=== PATIENT | female | born 1930 | race Caucasian/White ===

== ENCOUNTER 2016-09-11 08:53 | Observation (INO) | payer MEDICARE, OTHER ==
[~2016-09-11] VITALS: Ht 154.9 cm; Wt 59.5 kg
[~2016-09-11 08:53] MED LIST: ACET-818 PO; ASPI-535 PO; CARV12.540 PO; FERR-49 PO; HYDR200T5 PO; OMEP20CA16 PO; VIC PO; [UNRECOGNIZED DRUG - CODE] NASAL
[2016-09-11] MEDS ORDERED: NALOXONE (0.4 MG/ML) INJ IV ONE ×3 (09:30→10:30)
[2016-09-11] MEDS ORDERED: METHYLPREDNISOLONE 125 MG INJ IV STA (10:13)
[2016-09-11] MEDS ORDERED: ALBUTEROL 0.5% (NEB) 2.5 MG/0.5 ML AMP INH STA (10:13)
[2016-09-11] MEDS ORDERED: DULO20CA17 PO (10:19)
[2016-09-11] MEDS ORDERED: IPRA3AMP INHALATION (10:19)
[2016-09-11] MEDS ORDERED: WHEA1POW8 PO (10:19)
[2016-09-11] MEDS ORDERED: DULO30CA47 PO (10:19)
[2016-09-11] MEDS ORDERED: BECL8.7A5 INH (10:19)
[2016-09-11] MEDS ORDERED: CLOP75TA4 PO (10:19)
[2016-09-11] MEDS ORDERED: AMLO5TAB4 PO (10:22)
[2016-09-11] MEDS ORDERED: HYDR-906 PO (10:22)
[2016-09-11] MEDS ORDERED: GABA300C16 PO (10:22)
[2016-09-11] MEDS ORDERED: ACET325T45 PO (10:22)
[2016-09-11 11:00] VITALS: TEMP 98.3
[2016-09-11 11:31] LABS: ADD SCAN DIFF NO
[2016-09-11 11:34] LABS: BASOPHIL # 0.1 10^3/ul (0.0-0.1); BASOPHILS % 0.5 % (0.0-2.0); EOSINOPHILS # 0.3 10^3/ul (0.0-0.5); EOSINOPHILS % 3.4 % (0.0-7.0); HEMATOCRIT 37.2 % (37.0-47.0); HEMOGLOBIN 11.7 g/dl (12.0-16.0); LYMPHOCYTES # 1.5 10^3/ul (0.8-2.9); LYMPHOCYTES % 16.2 % (15.0-51.0); MEAN CORPUSCULAR HEMOGLOBIN 29.5 pg (29.0-33.0); MEAN CORPUSCULAR HGB CONC 31.5 g/dl (32.0-37.0); MEAN CORPUSCULAR VOLUME 93.9 fl (82.0-101.0); MEAN PLATELET VOLUME 9.8 fl (7.4-10.4); MONOCYTE # 0.8 10^3/ul (0.3-0.9); MONOCYTES % 8.8 % (0.0-11.0); NEUTROPHIL # 6.7 10^3/ul (1.6-7.5); NEUTROPHILS % 70.9 % (39.0-77.0); PLATELET COUNT 266 10^3/UL (140-415); RED BLOOD COUNT 3.96 10^6/ul (4.20-5.40); RED CELL DISTRIBUTION WIDTH 13.3 % (11.5-14.5); WHITE BLOOD COUNT 9.5 10^3/ul (4.8-10.8)
--- NOTE | 2016-09-11 11:38 | RADRPT ---
PROCEDURE: XR Chest 1 view. CLINICAL INDICATION: Shortness of breath. TECHNIQUE: AP views of the chest were obtained. COMPARISON: March 18, 2013 FINDINGS: The heart is large. Calcified atherosclerosis is noted in the aorta. Left-sided dual chamber, biven tricular pacemaker/defibrillator has its leads over the heart and appears stable. Central pulmonary vascular congestion and interstitial prominence is seen in both lungs. Lungs are hypoinflated. Sc attered atelectasis is noted in both lungs. No consolidations are identified. No pneumothorax is se en. The osseous structures are osteopenic. Degenerative changes are seen in the shoulders. IMPRESSION: Cardiomegaly with calcified atherosclerosis in the aorta. Central pulmonary vascular congestion and interstitial prominence in both lungs. Scattered atelectasis in both lungs. Hypoinflated lungs. RPTAT: AA .Matias Puga MD, Date Time Electronically viewed and signed by .Matias Puga MD, on 09/11/2016 11:37 .P/
--- NOTE | 2016-09-11 12:08 | RADRPT ---
PROCEDURE: CT Brain without contrast. CLINICAL INDICATION: Altered mental status. TECHNIQUE: A CT of the brain was performed on a multidetector CT scanner utilizing axial sections from the skull base through the vertex without contrast. Images were reviewed on a high-resolution [employer] workstation. Exam CTDI = 44.9 x 2 and 45.01 x2 mGy and the DLP = 720.23 mGy-cm. One or more of the following dose reduction techniques were used: Automated exposure control Adjustment of the mA and/or kV according to patient size. Use of iterative reconstruction technique. COMPARISON: CT head 03/13/2013 FINDINGS: Moderate diffuse cerebral and cerebellar atrophy is present. There is proportionate dilatation of t he ventricular system and sulci in a symmetric fashion. There is prominence of the extraaxial spaces secondary to atrophy. There is no evidence of intracranial hemorrhage, mass effect or midline shift . No abnormal intra-axial or extra-axial fluid collections are seen. The density of the brain is n ormal and the simon/white matter differentiation is well preserved. Severe confluent diffuse deep wh ite matter microangiopathic ischemic change is seen. The osseous structures are unremarkable. Pa ranasal sinuses are clear. Vascular calcifications are identified. There is partially imaged severe degenerative changes at the atlantoaxial joint. There is superior displacement of the odontoid proc ess in keeping with basilar invagination. There is mild narrowing at the craniocervical junction. IMPRESSION: 1. No intracranial hemorrhage, mass effect or midline shift. 2. moderate generalized atrophy. Severe confluent microangiopathic ischemic change. 3. Intracranial atherosclerosis. 4. Partially imaged severe degenerative changes at atlantoaxial joint with mild narrowing at the furniture crater niocervical . RPTAT: BB .Iron Mcclain MD, MD Date Time Electronically viewed and signed by .Iron Mcclain MD, on 09/11/2016 12:07 .O/
[2016-09-11 13:32] LABS: ALANINE AMINOTRANSFERASE 31 IU/L (13-69); ALBUMIN 4.2 g/dl (3.3-4.9); ALBUMIN/GLOBULIN RATIO 1.23; ALKALINE PHOSPHATASE 76 IU/L (42-121); ANION GAP 13 (8-16); ASPARTATE AMINO TRANSFERASE 24 IU/L (15-46); BILIRUBIN,INDIRECT 0.1 mg/dl (0-1.1); BILIRUBIN,TOTAL 0.1 mg/dl (0.2-1.3); BLOOD UREA NITROGEN 24 mg/dl (7-20); CALCIUM 8.9 mg/dl (8.4-10.2); CARBON DIOXIDE 27 mmol/L (21-31); CHLORIDE 109 mmol/L (97-110); CREATININE 0.69 mg/dl (0.44-1.00); GLUCOSE 122 mg/dl (70-220); POTASSIUM 4.4 mmol/L (3.5-5.1); SODIUM 145 mmol/L (135-144); TOTAL PROTEIN 7.6 g/dl (6.1-8.1)
[2016-09-11 13:36] LABS: ADD UMIC YES; UR BILIRUBIN (Dip) NEGATIVE (NEGATIVE); UR BLOOD (Dip) NEGATIVE (NEGATIVE); UR CLARITY CLEAR (CLEAR); UR COLOR LT. YELLOW (YELLOW); UR GLUCOSE (Dip) NEGATIVE (NEGATIVE); UR KETONES (Dip) NEGATIVE (NEGATIVE); UR LEUKOCYTE ESTERASE (Dip) 1+ (NEGATIVE); UR NITRITE (Dip) NEGATIVE (NEGATIVE); UR TOTAL PROTEIN (Dip) TRACE (NEGATIVE); UR UROBILINOGEN (Dip) 0.2 E.U./dL (0.1-1.0)
[2016-09-11 13:45] LABS: TROPONIN-I < 0.012 ng/ml (0.00-0.12)
[2016-09-11 13:49] LABS: UR BACTERIA MANY; URINE RBCS NONE SEEN /HPF (0)
[2016-09-11] MEDS ORDERED: SOD CHLORIDE 0.9% 1,000 ML IV SCH (14:02)
--- NOTE | 2016-09-11 14:10 | ERA ---
ER Documentation Chief Complaint Date/Time DATE: 09/11/16 TIME: 14:04 Chief Complaint Generalized weakness x this AM HPI This is an 86-year-old female with a history of hypertension, dementia with a pacemaker defibrillator in was brought in for altered mental status. The patient has been given Tylenol with codeine 3-4 times a day and they are giving her hydrocodone at night for sleep because of chronic pain issues there are only spacing out or hours between Tylenol codeine and hydrocodone doses. The patient was found to be confused this morning excessively sleepy. The patient has a chronic cough according to the family seems to be worse over the past few days but no fever. The patient has a home health care nurse every day. Patient 's baseline is demented but can have conversations and is amatory. Today she is very weak and will not walk. ROS All systems reviewed and are negative except as per history of present illness. Medications Home Meds Reported Medications Hydrocodone/Acetaminophen ([place] 5-325 Tablet) 1 Each Tablet, 0.5 TAB PO Q6H Y for PAIN LEVEL 6-10, TAB 09/11/16 Gabapentin* (Gabapentin*) 300 Mg Capsule, 300 MG PO HS, #60 CAP 09/11/16 Amlodipine Besylate* (Norvasc*) 5 Mg Tablet, 5 MG PO DAILY, TAB 09/11/16 Acetaminophen* (Acetaminophen*) 325 Mg Tablet, 325 MG PO Q4H Y for PAIN AND OR ELEVATED TEMP, #30 TAB 09/11/16 Beclomethasone Dip* (Qvar 80*) 7.3 Gm Inha, 2 PUFF INH BID, #1 INHALER 09/11/16 Wheat Dextrin (Benefiber) 1 Each Powd.pack, 1 PACKET PO DAILY 09/11/16 Ipratropium-Albuterol (Ipratropium-Albuterol) 0.5-3 Mg/3 Ml Ampul.neb, 3 ML INHALATION Q6, #30 VIAL 09/11/16 Clopidogrel Bisulfate* (Clopidogrel Bisulfate*) 75 Mg Tablet, 75 MG PO DAILY, # 30 TAB 09/11/16 Duloxetine Hcl* (Duloxetine Hcl*) 30 Mg Capsule.dr, 30 MG PO DAILY, #30 CAP 09/11/16 Duloxetine Hcl* (Duloxetine Hcl*) 20 Mg Capsule.dr, 20 MG PO DAILY, #30 CAP 09/11/16 Triamcinolone Acetonide (Nasacort Aq) 16.5 Gm [place], 1 SPR NASAL HS 07/21/09 Acetaminophen-Codeine* (Tylenol No.3*) 1 Tab Tab, 1 TAB PO Q6 Y 07/21/09 Omeprazole* (Omeprazole*) 20 Mg Capsule.dr, 20 MG PO DAILY 07/21/09 Ferrous Sulfate* (Feosol*) 1 Tab Tablet, 1 TAB PO DAILY 07/21/09 Aspirin Ec (Aspir 81) 81 Mg Tablet.dr, 1 TAB PO DAILY 07/21/09 Carvedilol* (Coreg*) 12.5 Mg Tablet, 12.5 MG PO BID 07/21/09 Hydroxychloroquine Sulfate* (Plaquenil*) 200 Mg Tab, 200 MG PO DAILY 07/21/09 Discontinued Reported Medications Acetaminophen/Hydrocodone (Vicodin) 1 Tab Tab, 1 TAB PO Q6 Y 07/21/09 Allergies Allergies: Coded Allergies: Infliximab (Verified Allergy, Mild, 03/14/13) causes CHF adalimumab (Verified Allergy, 03/14/13) causes chf Uncoded Allergies: arava (Allergy, 03/14/13) chf PMhx/Soc History of Surgery: Yes (B TKR REMOTE) Hx Neurological Disorder: No Hx Respiratory Disorders: Yes (lung scarring, chronic cough) Hx Cardiac Disorders: Yes (pacer, CHF, leaky valve, hypertension) Hx Psychiatric Problems: Yes (depression) Hx Miscellaneous Medical Probl: Yes (HTN, RA, ANIMIA, H/O MULTIPLE FALLS. CHF) Hx Alcohol Use: No Hx Substance Use: No Hx Tobacco Use: No FmHx Family History: No coronary disease Physical Exam Vitals Vital Signs Date Time Temp Pulse Resp B/P Pulse Ox O2 Delivery O2 Flow Rate FiO2 09/11/16 11:11 Nasal Cannula 2 09/11/16 11:00 98.3 64 20 127/75 100 Nasal Cannula 2.0 09/11/16 10:26 80 20 100 Nasal Cannula 2.0 09/11/16 10:00 98.3 48 20 147/73 94 Nasal Cannula 2.0 09/11/16 09:03 97.9 66 20 147/65 94 09/11/16 09:00 98.3 55 20 147/68 92 Nasal Cannula 2.0 Physical Exam Const: Well-developed, well-nourished Head: Atraumatic, normocephalic Eyes: Normal Conjunctiva, bilateral small pupils not quite pinpoint PERRLA, EOMI, normal sclera, no nystagmus ENT: Normal External Ears, Nose and Mouth, moist mucus membranes. Neck: Full range of motion. No meningismus, no lymphadenopathy. Resp: Clear to auscultation bilaterally, no wheezing, rhonchi, rales Cardio: Regular rate and rhythm, no murmurs, S1 S2 present Abd: Soft, non tender x 4, non distended. Normal bowel sounds, no guarding or rebound, no pulsitile abdominal masses or bruits Skin: No petechiae or rashes, no ecchymosis , no maculopapular rash Back: No midline or flank tenderness Ext: No cyanosis, or edema, FROM x 4, normal inspection, neurovascularly intact x 4 Neur: Groggy with mumbling speech , STR 4/5 x 4, sensation intact x 4, no focal findings Psych: Unable to obtain Result Diagram: 09/11/16 1117 09/11/16 1250 Results 24 hrs Laboratory Tests Test 09/11/16 11:17 09/11/16 12:50 09/11/16 12:57 White Blood Count 9.510^3/ul Red Blood Count 3.9610^6/ul Hemoglobin 11.7g/dl Hematocrit 37.2% Mean Corpuscular Volume 93.9fl Mean Corpuscular Hemoglobin 29.5pg Mean Corpuscular Hemoglobin Concent 31.5g/dl Red Cell Distribution Width 13.3% Platelet Count 78092^3/UL Mean Platelet Volume 9.8fl Neutrophils % 70.9% Lymphocytes % 16.2% Monocytes % 8.8% Eosinophils % 3.4% Basophils % 0.5% Nucleated Red Blood Cells % 0.0/100WBC Neutrophils # 6.710^3/ul Lymphocytes # 1.510^3/ul Monocytes # 0.810^3/ul Eosinophils # 0.310^3/ul Basophils # 0.110^3/ul Nucleated Red Blood Cells # 0.010^3/ul Sodium Level 145mmol/L Potassium Level 4.4mmol/L Chloride Level 109mmol/L Carbon Dioxide Level 27mmol/L Anion Gap 13 Blood Urea Nitrogen 24mg/dl Creatinine 0.69mg/dl Glucose Level 122mg/dl Calcium Level 8.9mg/dl Total Bilirubin 0.1mg/dl Direct Bilirubin 0.00mg/dl Indirect Bilirubin 0.1mg/dl Aspartate Amino Transf (AST/SGOT) 24IU/L Alanine Aminotransferase (ALT/SGPT) 31IU/L Alkaline Phosphatase 76IU/L Troponin I < 0.012ng/ml B-Type Natriuretic Peptide 122PG/ML Total Protein 7.6g/dl Albumin 4.2g/dl Globulin 3.40g/dl Albumin/Globulin Ratio 1.23 Urine Color LT. YELLOW Urine Clarity CLEAR Urine pH 5.5 Urine Specific [place] 1.025 Urine Ketones NEGATIVE Urine Nitrite NEGATIVE Urine Bilirubin NEGATIVE Urine Urobilinogen 0.2 E.U./dL Urine Leukocyte Esterase 1+ Urine Microscopic RBC NONE SEEN/HPF Urine Microscopic WBC 5-10/HPF Urine Bacteria MANY Urine Hemoglobin NEGATIVE Urine Glucose NEGATIVE% Urine Total Protein TRACE Current Medications Medications (Trade) Dose Ordered Sig/Amy Route PRN Reason Start Time Stop Time Status Last Admin Dose Admin Naloxone HCl (Narcan) 0.4 mg ONCE ONCE IV 09/11/16 09:30 09/11/16 09:31 DC 09/11/16 09:20 Naloxone HCl (Narcan) 0.2 mg ONCE ONCE IV 09/11/16 10:00 09/11/16 10:01 DC 09/11/16 10:03 Albuterol (Proventil 0.5% (Neb)) 10 mg ONCE STAT INH 09/11/16 10:13 09/11/16 10:15 DC 09/11/16 10:22 Methylprednisolone Sodium Succinate (Solu-Medrol) 125 mg ONCE STAT IV 09/11/16 10:13 09/11/16 10:15 DC 09/11/16 10:54 Naloxone HCl (Narcan) 0.2 mg ONCE ONCE IV 09/11/16 10:30 09/11/16 10:31 DC 09/11/16 10:54 Procedures/MDM Patient was given 0.4 mg of Narcan with a marked improvement in her mental status. She is having 0.2 mg of Narcan 2 to follow with some proven as well. After the Narcan was given the patient was coughing quite a bit. She is given breathing treatments to follow-up this which does seem to help quite a bit per Family states that the patient still kind of mumbling and not quite herself mentally although clinically she is better after getting been given Narcan. At this point obtain workup PROCEDURE: CT Brain without contrast. CLINICAL INDICATION: Altered mental status. TECHNIQUE: A CT of the brain was performed on a multidetector CT scanner utilizing axial sections from the skull base through the vertex without contrast. Images were reviewed on a high-resolution [employer] workstation. Exam CTDI = 44.9 x 2 and 45.01 x2 mGy and the DLP = 720.23 mGy-cm. One or more of the following dose reduction techniques were used: Automated exposure control Adjustment of the mA and/or kV according to patient size. Use of iterative reconstruction technique. COMPARISON: CT head 03/13/2013 FINDINGS: Moderate diffuse cerebral and cerebellar atrophy is present. There is proportionate dilatation of the ventricular system and sulci in a symmetric fashion. There is prominence of the extraaxial spaces secondary to atrophy. There is no evidence of intracranial hemorrhage, mass effect or midline shift. No abnormal intra-axial or extra-axial fluid collections are seen. The density of the brain is normal and the simon/white matter differentiation is well preserved. Severe confluent diffuse deep white matter microangiopathic ischemic change is seen. The osseous structures are unremarkable. Paranasal sinuses are clear. Vascular calcifications are identified. There is partially imaged severe degenerative changes at the atlantoaxial joint. There is superior displacement of the odontoid process in keeping with basilar invagination. There is mild narrowing at the craniocervical junction. IMPRESSION: 1. No intracranial hemorrhage, mass effect or midline shift. 2. moderate generalized atrophy. Severe confluent microangiopathic ischemic change. 3. Intracranial atherosclerosis. 4. Partially imaged severe degenerative changes at atlantoaxial joint with mild narrowing at the craniocervical . RPTAT: BB .Iron Mcclain MD, MD Date Time Electronically viewed and signed by .Iron Mcclain MD, on 09/11/2016 12:07 .O/ CC: KELLIE ACHARYA DO PROCEDURE: XR Chest 1 view. CLINICAL INDICATION: Shortness of breath. TECHNIQUE: AP views of the chest were obtained. COMPARISON: March 18, 2013 FINDINGS: The heart is large. Calcified atherosclerosis is noted in the aorta. Left- sided dual chamber, biventricular pacemaker/defibrillator has its leads over the heart and appears stable. Central pulmonary vascular congestion and interstitial prominence is seen in both lungs. Lungs are hypoinflated. Scattered atelectasis is noted in both lungs. No consolidations are identified. No pneumothorax is seen. The osseous structures are osteopenic. Degenerative changes are seen in the shoulders. IMPRESSION: Cardiomegaly with calcified atherosclerosis in the aorta. Central pulmonary vascular congestion and interstitial prominence in both lungs. Scattered atelectasis in both lungs. Hypoinflated lungs. RPTAT: AA .Matias Puga MD, MD Date Time Electronically viewed and signed by .Matias Puga MD, MD on 09/11/2016 11:37 .P/ CC: KELLIE ACHARYA DO Rhythm strip shows a ventricular paced rhythm, normal rate We will admit to the hospital for observation. Still for this patient's symptoms are due to narcotic overdose on accident. But we will watch her clinically. Spoke with her doctor who saw her in the ER Dr. Wilson We will admit for observation telemetry Departure Diagnosis: Primary Impression: Confusion Additional Impression: Narcotic overdose Qualified Code: T40.601A - Narcotic overdose, accidental or unintentional, initial encounter Condition: Stable KELLIE ACHARYA DO Sep 11, 2016 14:10
[2016-09-11] MEDS ORDERED: ONDANSETRON 4 MG INJ IV PRN (14:30)
[2016-09-11] MEDS ORDERED: ACETAMINOPHEN 325 MG TAB PO PRN ×2 (14:30→16:00)
[2016-09-11] MEDS ORDERED: DEXTROSE 5% 1,000 ML IV SCH (16:00)
[2016-09-11 16:13] VITALS: BP 167/77; RESP 17
[2016-09-11 16:19] VITALS: Ht 154.9 cm; Wt 59.5 kg
[2016-09-11 16:24] VITALS: PULSE 86
--- NOTE | 2016-09-11 16:47 | HP ---
DATE OF ADMISSION: 09/11/2016 CHIEF COMPLAINT: Altered mental status. HISTORY OF PRESENT ILLNESS: This is an 86-year-old female with a past medical history of rheumatoid arthritis since age 13, history of hypertension, history of arrhythmia, status post pacemaker, hist ory of chronic pain syndrome, history of CHF, history of valvular regurgitation, history of intersti tial lung disease, history of depression, hypertension, anemia, history of osteoarthritis who presen ts to [facility] for altered mental status. The patient at baseline is on chronic pain medications including codeine and opiates, but the patient is able to ambulate with a walker. The patient was also noted to be forgetful at baseline with cognitive decline. The patient recentl y had an increase in her Neurontin from 100 to 300 mg nightly for chronic pain. The patient apparen tly was in her normal state of health until the last 1 to 2 days when there was noted to be increase d lethargy. This morning after receiving oral pain medications, the patient became obtunded, was ex cessively sleepy. The patient also noted to have a worsening cough over the last several days. As a result of increased lethargy and cough, the patient was brought into the emergency room for evalua tion. Upon arrival, the patient's blood pressure was 147/68. A CT scan of the head was obtained wh ich showed no acute findings, evidence of atrophy and ischemic changes. The patient also had a ches t x-ray which showed findings of atelectasis, central pulmonary vascular congestion, interstitial pr ominence. In the emergency room, the patient was given Narcan x2 which showed improvement in her me ntal status. The patient was also given IV fluids, a dose of steroids and albuterol. Upon my evaluation of the patient at this time, she is currently lethargic, but arousable. There hubbard ve been no reports of hemoptysis, hematemesis, or hematochezia. PAST MEDICAL HISTORY: History of rheumatoid arthritis, history of hypertension, history of cognitiv e decline, dementia, history of CHF, history of osteoarthritis, history of leaky valve, history of m ultiple falls. PAST SURGICAL HISTORY: Bilateral knee replacement. ALLERGIES: THE PATIENT HAS MULTIPLE DRUG ALLERGIES. PLEASE SEE LIST. FAMILY HISTORY: Noncontributory. SOCIAL HISTORY: Does not drink, smoke, or do drugs. MEDICATIONS: Have been reviewed and reconciled. REVIEW OF SYSTEMS: Unable to do adequate review of systems as the patient is altered. Pertinent po sitives obtained by reviewing medical records, speaking to patient's daughter at bedside, as stated in HPI, otherwise negative. PHYSICAL EXAMINATION: VITAL SIGNS: Blood pressure is 130/68, respirations 19, pulse 83, temperature 98.3. HEENT: Head is normocephalic. Pupils are pinpoint, but reactive. NECK: Supple. HEART: Regular rate. LUNGS: Show diminished breath sounds at the base, otherwise clear. ABDOMEN: Soft, obese, nontender to palpation, no rebound or guarding. EXTREMITIES: Negative for clubbing, cyanosis. No edema noted. Scarring of the bilateral patella a nd lower ankles. MUSCULOSKELETAL: No joint effusions. NEUROLOGIC: Limited exam due to lack of patient cooperation. LABORATORY DATA: Showed a sodium of 145, potassium 4.4, chloride 109, BUN 24, creatinine 0.69. Whi te count 9.5, hemoglobin 11.7, platelet count 266. Urinalysis shows 5 to 10 WBCs, RBCs none seen. Urine culture pending. IMAGING STUDIES: As stated in HPI. ASSESSMENT AND PLAN: This is an 86-year-old female who presents with: 1. Acute encephalopathy. Etiology is unclear, likely opiate-induced. The patient is status post C T scan of the brain that showed no acute findings. The patient is status post Narcan with improveme nt in cognitive status. The possibility of urinary infection as well as hypernatremia as a contribu ting factor is also a consideration. The plan at this point is to continue to observe the patient o n telemetry. We will hold all opiates. Will send out a urine culture. We will start patient on ge ntle hypotonic fluid and monitor mental status closely. 2. Hypertension. Blood pressure is currently controlled. We will continue current blood pressure regimen. 3. History of arrhythmia, status post pacemaker. Continue to monitor on telemetry. 4. Chronic pain syndrome secondary to osteoarthritis and rheumatoid arthritis. At this point, will continue Tylenol p.r.n. for pain and monitor. 5. History of interstitial lung disease with possible chronic obstructive pulmonary disease exacerb ation. We will continue nebulizers. Continue Spiriva, monitor closely. 6. History of rheumatoid arthritis. Continue current medical management. 7. Previous history of cerebrovascular accident. Will continue aspirin. 8. Gastroesophageal reflux disease. Continue PPI. 9. Anemia. Will monitor hemoglobin and hematocrit levels. 10. Debility. Place a physical therapy consult for evacuation. 11. Gastrointestinal and deep venous thrombosis prophylaxis. Continue proton pump inhibitor and se quential leg squeezers. 12. History of congestive heart failure. The patient has mild vascular congestion on chest x-ray, will monitor closely. Consider diuretic therapy. Please note I spent 25 minutes [id number] time with the patient and the patient's family at [facility]. The patient is FULL CODE. Dictated By: FARZANA HE DO NR/NTS Conf#: [id number] DID#: [id number]
[2016-09-11] MEDS: CEFTRIAXONE 1 GM/50 ML (PMX) 50 ML IVPB SCH (18:06)
--- NOTE | 2016-09-11 19:15 | CONS ---
DATE OF ADMISSION: 09/11/2016 DATE OF CONSULTATION: 09/11/2016 TYPE OF CONSULTATION: Neurology. Thank you, Dr. Wilson, for your kind referral for evaluation of encephalopathy. HISTORY OF PRESENT ILLNESS: The patient is an 86-year-old lady with extensive past medical history of ____ arthritis, chronic pain syndrome, dysrhythmias, status post pacemaker placement, congestive heart failure, interstitial lung disease, depression, hypertension and anemia, who is very lethargic this morning and caregiver could not wake her up or had some problems waking her. She does take No rco and Tylenol with codeine, but it is caregivers who administer it to her. In the hospital, the p atkarie had CAT scan of the head which did not show any acute abnormality. She was found to be dehyd rated with BUN of 24, creatinine 0.69. Sodium 145. Rest of comprehensive metabolic panel within no rmal limits. She had hemoglobin 11, hematocrit 37, normal WBCs and platelets. Urinalysis shows 1+ leukocyte esterase, WBC count 5-10. With hydration and antibiotics she was started on Rocephin. Th e patient improved and was able to converse, although she still continues to be somewhat confused bu t is clearly better compared to this morning. Her daughter and care provider at bedside providing a ll details of the history. No history of seizures. CURRENT MEDICATIONS: Norvasc, aspirin and Plavix, Cymbalta 20 as well as Plaquenil, Protonix. Coreg , Ceftriaxone. ALLERGIES: ADALIMUMAB ARAVA. SOCIAL HISTORY: No alcohol, tobacco, drug use. FAMILY HISTORY: Noncontributory. Chest x-ray showed vascular congestion. REVIEW OF SYSTEMS: All pertinent positives included in the above history of present illness. PHYSICAL EXAMINATION: VITAL SIGNS: Temperature 97.4, pulse 86, respirations 17, 167/77 blood pressure. GENERAL: Not in acute distress, lying in bed. HEENT: Normocephalic, atraumatic head. NECK: No carotid bruits. No thyromegaly. LUNGS: Clear to auscultation bilaterally. CARDIAC: Normal cardiac rhythm and sounds. ABDOMEN: Soft, nontender. EXTREMITIES: No cyanosis, clubbing or edema. NEUROLOGIC: She is awake, alert, and oriented x1 only. She has fluent speech. Cranial nerve exami nation shows intact visual márquez bilaterally. Pupils reactive from 3 to 2 mm bilaterally. Extraoc ular movements intact without nystagmus. Symmetrical face. Preserved facial strength and sensation . Tongue is in midline. Palate elevates symmetrically. Motor strength examination seems to be pre served in all extremities. Normal bulk, tone, and strength. Sensory examination grossly intact to light touch. Deep tendon reflexes 1+ upper extremities, absent in lower extremities. Equivocal res ponse to plantar stimulation bilaterally. Coordination preserved on [id number] testing. No d ysmetria or tremor. IMPRESSION: Encephalopathy, toxic metabolic in etiology, improving secondary to dehydration, urinar y tract infection. Continue current treatment. For further evaluation of encephalopathy, I will ob tain EEG. No other recommendations for patient's management. According to the family, she may have some baseline forgetfulness as well. Dictated By: KACY SOUZA/KENNEDY Conf#: [id number] DID#: [id number]
[2016-09-11] MEDS: ALBUTEROL/IPRATROPIUM (NEB) 3 ML AMP NEB SCH (19:38)
[2016-09-11 20:00] VITALS: PULSE 90
[2016-09-11 20:04] VITALS: BP 158/71; RESP 18
[2016-09-11] MEDS: MOMETASONE 0.24 GM INHALER INH SCH (20:58)
[2016-09-11] MEDS: DOCUSATE SODIUM 100 MG CAP PO SCH (20:59)
[2016-09-11] MEDS ORDERED: FLUTICASONE 0.05% 16 GM NAS SPRAY NASAL SCH (21:00)
[2016-09-12] VITALS (9 sets, daily range): BP systolic 145–188; BP diastolic 67–88; PULSE 86–104; RESP 18
[2016-09-12] MEDS: ALBUTEROL/IPRATROPIUM (NEB) 3 ML AMP NEB SCH ×3 (00:43→16:06)
[2016-09-12] MEDS ORDERED: PANTOPRAZOLE (EC) 40 MG TAB PO SCH (06:00)
[2016-09-12 06:59] LABS: ADD SCAN DIFF NO
[2016-09-12 07:01] LABS: BASOPHILS % 0.1 % (0.0-2.0); HEMATOCRIT 37.3 % (37.0-47.0); HEMOGLOBIN 12.1 g/dl (12.0-16.0); LYMPHOCYTES # 0.7 10^3/ul (0.8-2.9); LYMPHOCYTES % 9.5 % (15.0-51.0); MEAN CORPUSCULAR HEMOGLOBIN 29.3 pg (29.0-33.0); MEAN CORPUSCULAR HGB CONC 32.4 g/dl (32.0-37.0); MEAN CORPUSCULAR VOLUME 90.3 fl (82.0-101.0); MEAN PLATELET VOLUME 9.4 fl (7.4-10.4); MONOCYTE # 0.2 10^3/ul (0.3-0.9); MONOCYTES % 1.9 % (0.0-11.0); NEUTROPHIL # 6.8 10^3/ul (1.6-7.5); NEUTROPHILS % 87.7 % (39.0-77.0); PLATELET COUNT 300 10^3/UL (140-415); RED BLOOD COUNT 4.13 10^6/ul (4.20-5.40); RED CELL DISTRIBUTION WIDTH 13.2 % (11.5-14.5); WHITE BLOOD COUNT 7.8 10^3/ul (4.8-10.8)
[2016-09-12 07:36] LABS: CALCIUM 9.2 mg/dl (8.4-10.2); CREATININE 0.56 mg/dl (0.44-1.00); MAGNESIUM 1.9 mg/dl (1.7-2.5); PHOSPHORUS 3.5 mg/dl (2.5-4.9); POTASSIUM 3.7 mmol/L (3.5-5.1)
[2016-09-12] MEDS: DOCUSATE SODIUM 100 MG CAP PO SCH (08:53)
[2016-09-12] MEDS: MOMETASONE 0.24 GM INHALER INH SCH (08:55)
[2016-09-12] MEDS ORDERED: FERROUS SULFATE (EC) 325 MG TAB PO SCH (09:00)
[2016-09-12] MEDS ORDERED: DULOXETINE 20 MG CAP DR PO SCH (09:00)
[2016-09-12] MEDS ORDERED: AMLODIPINE 5 MG TAB PO SCH (09:00)
[2016-09-12] MEDS ORDERED: ASPIRIN (EC) 81 MG TAB PO SCH (09:00)
[2016-09-12] MEDS ORDERED: HYDROXYCHLOROQUINE 200 MG TAB PO SCH (09:00)
[2016-09-12] MEDS ORDERED: CLOPIDOGREL 75 MG TAB PO SCH (09:00)
[2016-09-12] MEDS ORDERED: DULOXETINE 30 MG CAP DR PO SCH (09:00)
--- NOTE | 2016-09-12 10:37 | PN ---
DATE: 09/12/2016 SUBJECTIVE: The patient is stable, no acute events overnight. The patient is more alert, back to p revious baseline. No other acute events noted. OBJECTIVE: VITAL SIGNS: Blood pressure 175/80, respiration 18, pulse 80, temperature 97.7. HEENT: Head is normocephalic. NECK: Supple. HEART: Regular rate. LUNGS: Show diminished breath sounds at the base. ABDOMEN: Soft, nontender to palpation. No rebound or guarding. EXTREMITIES: Negative for clubbing, cyanosis, no edema. DERMATOLOGIC: No rashes. MUSCULOSKELETAL: No joint effusions. NEUROLOGIC: The patient is alert and oriented. Able to move all extremities. LABORATORY DATA: Shows white count 7.8, hemoglobin 10.1, hematocrit 37.3, platelet count 300. BMP within normal limits. ASSESSMENT AND PLAN: 1. Acute encephalopathy, etiology is multifactorial secondary to toxic metabolic due to UTI and opi ate induced. The patient is clinically improved after receiving IV antibiotics and status post Narc an. Appreciate neurology evaluation. This patient's mental status appears to be back to baseline. At this point, will continue to monitor closely. 2. Urinary tract infection. The patient's urine culture is positive for gram-negative rods. Contin ue IV antibiotics. Awaiting final culture results. 3. Hypertension. Blood pressure elevated. Will continue Norvasc, Coreg and adjust medications as needed. 4. History of arrhythmia, status pacemaker. Continue to monitor on telemetry. 5. Chronic pain syndrome secondary to osteoarthritis, rheumatoid arthritis. The patient is clinica lly stable. Continue Tylenol p.r.n. 6. History of chronic obstructive pulmonary disease with interstitial lung disease. The patient is currently stable. Continue Spiriva nebulizers p.r.n. 7. History of rheumatoid arthritis. Continue to monitor. 8. History of cerebrovascular accident. Continue aspirin. 9. Gastroesophageal reflux disease. Continue PPI. 10. Anemia. Continue to monitor H and H levels. 11. History of congestive heart failure. The patient appears euvolemic. Continue to monitor. 12. Debility. Continue PT, OT. 13. Gastrointestinal and deep venous thrombosis prophylaxis. Continue PPI, sequential leg squeezer s. Dictated By: FARZANA CARMONA/KENNEDY Conf#: [id number] DID#: [id number]
[2016-09-12] MEDS ORDERED: ALBUTEROL 0.083% (NEB) 2.5 MG/3 ML AMP ONE (15:49)
[2016-09-12] MEDS: CEFTRIAXONE 1 GM/50 ML (PMX) 50 ML IVPB SCH (18:31)
[2016-09-12] MEDS ORDERED: LORAZEPAM 1 MG TAB PO SCH (21:00)
--- NOTE | 2016-09-13 00:19 | SP ---
DATE OF PROCEDURE: 09/11/2016 ELECTROENCEPHALOGRAM INDICATION: An 86-year-old lady with transient encephalopathy, likely toxic metabolic in etiology secondary to urosepsis. DESCRIPTION OF PROCEDURE: Routine EEG was recorded digitally. Uxoct-zi-jrtyn and aarct-fb-jke montages were recorded and reviewed. All impedances were measured and recorded. Cap electrodes were placed in accordance with International 10-20 system of electrode placement. FINDINGS: Symmetrically distributed background activity of low to medium amplitude ranging in frequency between 4 to 6 cycles per second was seen, at times up to 8 cycles per second. Intermittent triphasic waves were observed. No signs of ongoing electrographic seizures. No lateralized slowing seen. IMPRESSION: Abnormal study secondary to background slowing and presence of triphasic waves. All could reflect toxic metabolic etiology of encephalopathy. Dictated By: KACY SOUZA/KENNEDY Conf#: [id number] DID#: [id number] MTDD
--- NOTE | 2016-09-13 10:36 | DS ---
DATE OF ADMISSION: 09/11/2016 DATE OF DISCHARGE: 09/12/2016 HOSPITAL COURSE: This is an 86-year-old female with a past medical history of rheumatoid arthritis since age 13, history of hypertension, history of arrhythmia, status post pacemaker, history of oste oarthritis, who presented to [facility] for altered mental status. The patient at her baseline is forgetful; however, there has been a recent cognitive decline 1 to 2 days prior to admission. The patient was significantly altered in the morning of admission, was subsequently brou ght into the hospital. In the emergency room, the patient was given Narcan with temporary response. The patient, however, continued to be altered in the emergency room, was subsequently admitted to telemetry for evaluation. In terms of the patient's acute encephalopathy, etiology was toxic metabo lic, likely from UTI, with possible component of opiate induced. The patient had a CT scan of the b rain, which was negative. The patient's urine cultures were positive, was started on IV antibiotics with improvement in mental status. The patient's opiates were also withheld. The patient was seen by neurologist, Dr. Hernandez Palencia, who felt that the patient's altered mental status was toxi c metabolic. There was no evidence of seizure activity. After receiving 24 hours of observation, I V fluids and antibiotics, patient's mental status returned back to previous baseline. The patient w as subsequently discharged home with IV antibiotics for 5 more days to complete a 7-day course. The patient was to follow up with the primary care physician in 2 to 3 days' time. The patient's other medical problems include hypertension, arrhythmia, chronic pain syndrome, interstitial lung disease , COPD, rheumatoid arthritis, and anemia were stable during the hospital course. Currently, at this time, the patient will be discharged home with home health with IV antibiotics for 5 more days to c omplete a 7-day course. At time of discharge, the patient is stable, in no acute distress. FINAL DIAGNOSES: 1. Acute encephalopathy, etiology secondary to toxic metabolic, possible opiate induced. 2. Urinary tract infection. 3. Hypertension. 4. Arrhythmia. 5. Chronic obstructive pulmonary disease. 6. Rheumatoid arthritis. 7. Interstitial lung disease. 8. History of cerebrovascular accident. 9. Gastroesophageal reflux disease. 10. Anemia. 11. Debility. 12. History of congestive heart failure. CONDITION ON DISCHARGE: At time of discharge, the patient is stable, in no acute distress. FINAL MEDICATIONS: The patient will continue her home medications and will be placed on IV antibiot ics of Rocephin 1 gram IV daily for 5 more days. Dictated By: FARZANA CARMONA/KENNEDY Conf#: [id number] DID#: [id number]
== END 2016-09-12 20:03 | disposition home health service (06) ==
LOC: E/R 08:53 → MS4 14:03 → UNDOADMOB 14:03 → TEL 14:20 → UNDODISOB 09-12 20:03
PROVIDERS: ADMIT Internal Medicine; ATTEND Internal Medicine
DX: G92 Toxic encephalopathy (principal); N39.0 Urinary tract infection, site not specified; I11.0 Hypertensive heart disease with heart failure; I50.9 Heart failure, unspecified; I49.9 Cardiac arrhythmia, unspecified; J44.9 Chronic obstructive pulmonary disease, unspecified; M06.9 Rheumatoid arthritis, unspecified; J84.9 Interstitial pulmonary disease, unspecified; K21.9 Gastro-esophageal reflux disease without esophagitis; D64.9 Anemia, unspecified; R53.81 Other malaise; E86.0 Dehydration; M19.90 Unspecified osteoarthritis, unspecified site; Z86.73 Personal history of transient ischemic attack (TIA), and cerebral infarction without residual deficits; Z79.82 Long term (current) use of aspirin; Z79.02 Long term (current) use of antithrombotics/antiplatelets; Z88.8 Allergy status to other drugs, medicaments and biological substances
CPT/HCPCS: 36415; 70450; 71010; 80048; 80053; 81001; 83735; 83880; 84100; 84484; 85025; 87086; 94640; 94644; 94664; 95819; 96365; 96374; 96375; 96376; 99285; G0378; J0696; J2310; J2930; J7030; J7070; P9612

== ENCOUNTER 2017-07-31 08:40 | Emergency (ER) | END 2017-07-31 13:01 | disposition home or self-care (01) ==